=== PATIENT | female | born 1955 | race Caucasian/White ===

== ENCOUNTER 2016-10-06 05:46 | Day surgery (SDC) | payer BC ==
--- NOTE | ~2016-10-06 | EGD ---
EGD REPORT [facility] [address] [place]. [id number] NAME: CHILO MORENO : 53 STATUS : REG [facility] PAT#: [id number] AGE: 60 ADM/REG DATE : 10/06/16 MR#: [id number] REPORT SERV DATE: 10/06/16 DICTATED BY: BRENT BAJWA DATE: 10/06/16 REPORT STATUS : Draft TRANS[facility]IBED BY: [facility] DATE: 10/06/16 [facility] Patient Name: Chilo Moreno Date of : 1955 Attending MD: BRENT BAJWA MD Procedure Date No Time: 10/06/2016 Procedure: Colonoscopy Indications: High risk colon cancer surveillance: Personal history of colonic polyps, Last colonoscopy: 2003 Referring MD: LUX MCKENNA Medicines: See the Anesthesia note for documentation of the administered medications Complications: No immediate complications. Procedure: Pre-Anesthesia Assessment: - ASA Grade Assessment: III - A patient with severe systemic disease. After I obtained informed consent, the scope was passed under direct vision. Throughout the procedure, the patient's blood pressure, pulse, and oxygen saturations were monitored continuously. The PCF [id number] was introduced through the anus and advanced to the terminal ileum, with identification of the appendiceal orifice and IC valve. The colonoscopy was performed without difficulty. The patient tolerated the procedure well. The quality of the bowel preparation was adequate. Findings: The perianal and digital rectal examinations were normal. Internal hemorrhoids were found during retroflexion and were small. A sessile polyp was found in the proximal transverse colon. The polyp was 10 mm in size. The polyp was removed with a hot snare. Resection and retrieval were complete. Impression: - Internal hemorrhoids. - One 10 mm polyp in the proximal transverse colon. Resected and retrieved. Recommendation: - Patient has a contact number available for emergencies. The signs and symptoms of potential delayed complications were discussed with the patient. Return to normal activities tomorrow. Written discharge instructions were provided to the patient. - Regular diet. - Continue present medications. - Repeat colonoscopy in 3 years for surveillance. EGD REPORT [address] [address] NAME: CHILO MORENO : [birth year] STATUS : REG [facility] PAT#: [id number] AGE: 60 ADM/REG DATE : 10/06/16 MR#: [id number] REPORT SERV DATE: 10/06/16 DICTATED BY: BRENT BAJWA DATE: 10/06/16 REPORT STATUS : Draft TRANSCRIBED BY: [employer] DATE: 10/06/16 - FOR YOUR BIOPSY RESULTS: Please go to [email or web address] and register to receive your results via the portal. Your biopsy results will be posted there in about 7 to 10 days. IF you do not see result in 10 days, call office. - Restart your Eliquis today Procedure Code(s): --- Professional --- 93529, Colonoscopy, flexible, proximal to splenic flexure; with removal of tumor(s), polyp(s), or other lesion(s) by snare technique Diagnosis Code(s): --- Professional --- K64.8, Other hemorrhoids D12.3, Benign neoplasm of transverse colon Z86.010, Personal history of colonic polyps CPT copyright 2013 [employer]. All rights reserved. The codes documented in this report are preliminary and upon auditing coder review may be revised to meet current compliance requirements. Brent Bajwa MD BRENT BAJWA MD 10/06/2016 7:26 AM This report has been signed electronically. Number of Addenda: 0 Note Initiated On: 10/06/2016 6:58 AM Scope Withdrawal Time 0 hours 10 minutes 17 seconds [address] [place] [id number]
[~2016-10-06 05:46] MED LIST: ASAB PO; B121000P SC; ELIQUIS 5 MG TAB5 MG PO; FLOVENT110 INH; KLONO1 PO; KLOR-CON 1010 MEQ PO; L20 PO; LAN125 PO; LEVOTHYROXIN100 MCG PO; LEXAPRO20 PO; LISINOPRIL40 MG PO; LOP100 PO; PLAVIX PO; PROVHFA INH; ZOCOR40 PO
== END 2016-10-06 23:59 | disposition home health service (06) ==
LOC: DMU 05:46
PROVIDERS: Internal Medicine Gastroenterology
PROC: 0DBL8ZZ Excision of Transverse Colon, Via Natural or Artificial Opening Endoscopic (ICD-10-PCS; principal; 2016-10-06 07:00)
DX: Z12.11 Encounter for screening for malignant neoplasm of colon (principal); K64.8 Other hemorrhoids; D12.3 Benign neoplasm of transverse colon; I11.0 Hypertensive heart disease with heart failure; I48.91 Unspecified atrial fibrillation; E78.00 Pure hypercholesterolemia, unspecified; I50.9 Heart failure, unspecified; J44.9 Chronic obstructive pulmonary disease, unspecified; J45.909 Unspecified asthma, uncomplicated; G47.33 Obstructive sleep apnea (adult) (pediatric); E03.9 Hypothyroidism, unspecified; F41.9 Anxiety disorder, unspecified; F32.9 Major depressive disorder, single episode, unspecified; D64.9 Anemia, unspecified; Z86.010 Personal history of colon polyps; Z88.0 Allergy status to penicillin; Z88.2 Allergy status to sulfonamides; Z88.5 Allergy status to narcotic agent; Z79.899 Other long term (current) drug therapy; Z98.890 Other specified postprocedural states
CPT/HCPCS: 88305